=== PATIENT | male | born 1940 | race Caucasian/White ===

== ENCOUNTER 2016-12-08 | Outpatient (CLI) | payer MEDICARE, OTHER | END 2016-12-08 10:18 | disposition critical access hospital (66) | CPT/HCPCS: A0425; A0427 ==

== ENCOUNTER 2016-12-08 10:32 | Inpatient (IN) | payer MEDICARE, OTHER ==
[2016-12-08] MEDS ORDERED: SODIUM CHLORIDE 0.9% 1,000 ML IV ONE (11:46)
[2016-12-08] MEDS ORDERED: POTASSIUM CHLORIDE 20 MEQ TABLET PO STA (12:51)
[2016-12-08] MEDS ORDERED: POTASSIUM CHLORIDE 20 MEQ TABLET PO ONE (12:53)
[2016-12-08] MEDS ORDERED: ONDANSETRON 4 MG/2 ML VIAL IVP STA (15:17)
[2016-12-08] MEDS ORDERED: ONDANSETRON 4 MG/2 ML VIAL ONE (15:19)
[2016-12-08] MEDS ORDERED: FAMOTIDINE 20 MG/50 ML 50 ML IV ONE ×2 (15:43→16:15)
[2016-12-08] MEDS ORDERED: ACETAMINOPHEN 325 MG TABLET PO PRN (16:00)
[2016-12-08] MEDS: DEXTROSE 5%-0.45% NACL 1,000 ML IV SCH (19:00)
[2016-12-08] MEDS: POTASSIUM CHLOR 10 MEQ/100 ML 100 ML IV SCH ×2 (19:11→20:11)
[2016-12-08] MEDS: PANTOPRAZOLE 40 MG TABLET PO SCH (19:11)
[2016-12-08] MEDS: HYDROmorphone 1 MG/ML SYRINGE IVP PRN (21:08)
[2016-12-08] MEDS: CALCIUM CARBONATE CHEW 500 MG TABLET PO SCH (21:08)
[2016-12-08] MEDS: SODIUM CHLORIDE FLUSH 0.9% 10 ML SYRINGE IVP SCH (21:09)
[2016-12-09] MEDS: SODIUM CHLORIDE FLUSH 0.9% 10 ML SYRINGE IVP SCH ×3 (01:05→22:27)
[2016-12-09] MEDS: PANTOPRAZOLE 40 MG TABLET PO SCH (06:44)
[2016-12-09] MEDS: DEXTROSE 5%-0.45% NACL 1,000 ML IV SCH ×2 (06:44→15:16)
[2016-12-09] MEDS: ENOXAPARIN 40 MG/0.4 ML SYRINGE SUBQ SCH (08:56)
[2016-12-09] MEDS: CALCIUM CARBONATE CHEW 500 MG TABLET PO SCH ×2 (08:56→22:43)
[2016-12-09] MEDS: POLYETHYLENE GLYCOL 3350 17 GM PACKET PO SCH (08:56)
[2016-12-09] MEDS ORDERED: MULTIVITAMIN 10 ML, THIAMINE INJ 100 MG, FOLIC ACID INJ 1 MG in D5.45NS W/20 MEQ KCL 1,... IV SCH (09:30)
[2016-12-09] MEDS ORDERED: MORPHINE 2 MG/ML SYRINGE IVP PRN (12:31)
[2016-12-09] MEDS: diphenhydrAMINE 25 MG CAPSULE PO PRN ×2 (15:08→16:47)
[2016-12-09] MEDS: POTASSIUM CHLOR 10 MEQ/100 ML 100 ML IV SCH ×4 (15:14→18:53)
[2016-12-09] MEDS: HYDROcod/ACETAM 5/325 MG TABLET PO PRN (16:48)
[2016-12-09] MEDS: ONDANSETRON 4 MG/2 ML VIAL IVP PRN (17:49)
[2016-12-09] MEDS: CIPROFLOXACIN 400 MG/200 ML 200 ML IV SCH (18:52)
[2016-12-09] MEDS ORDERED: DEXTROSE 5%-0.2% NACL 1,000 ML IV SCH (19:00)
[2016-12-09] MEDS: metroNIDAZOLE 500 MG/100 ML 100 ML IV SCH (20:25)
[2016-12-09] MEDS ORDERED: FUROSEMIDE 20 MG/2 ML VIAL IVP STA (22:35)
[2016-12-10] MEDS: metroNIDAZOLE 500 MG/100 ML 100 ML IV SCH ×5 (00:39→23:56)
[2016-12-10] MEDS: SODIUM CHLORIDE FLUSH 0.9% 10 ML SYRINGE IVP SCH ×2 (01:02→17:28)
[2016-12-10] MEDS: CIPROFLOXACIN 400 MG/200 ML 200 ML IV SCH ×2 (04:39→18:38)
[2016-12-10] MEDS ORDERED: FUROSEMIDE 20 MG/2 ML VIAL IVP SCH (06:00)
[2016-12-10] MEDS: PANTOPRAZOLE 40 MG TABLET PO SCH (06:42)
[2016-12-10] MEDS: POTASSIUM CHLOR 10 MEQ/100 ML 100 ML IV SCH ×4 (07:48→12:44)
[2016-12-10] MEDS ORDERED: CALCIUM GLUCONATE 1,000 MG in SODIUM CHLORIDE 0.9% 50 ML IV ONE (08:00)
[2016-12-10] MEDS ORDERED: CALCIUM GLUCONATE IV ONE (08:00)
[2016-12-10] MEDS ORDERED: POTASSIUM CHLORIDE 20 MEQ TABLET PO SCH (08:00)
[2016-12-10] MEDS ORDERED: PANTOPRAZOLE 40 MG VIAL IV ONE (08:00)
[2016-12-10] MEDS ORDERED: SODIUM CHLORIDE 0.9% IV ONE (08:00)
[2016-12-10] MEDS: ONDANSETRON 4 MG/2 ML VIAL IVP PRN (08:42)
[2016-12-10] MEDS: SODIUM CHLORIDE FLUSH 0.9% 10 ML SYRINGE IVP PRN (08:44)
[2016-12-10] MEDS ORDERED: FUROSEMIDE 20 MG/2 ML VIAL IVP PRN (09:56)
[2016-12-10] MEDS: ENOXAPARIN 40 MG/0.4 ML SYRINGE SUBQ SCH (10:36)
[2016-12-10] MEDS: POLYETHYLENE GLYCOL 3350 17 GM PACKET PO SCH (11:06)
[2016-12-10] MEDS: MULTIVITAMIN 10 ML, FOLIC ACID INJ 1 MG, THIAMINE INJ 100 MG, MAGNESIUM SULFATE 2 GM in... IV SCH ×5 (11:08)
[2016-12-10] MEDS ORDERED: hydrOXYzine 50 MG/ML VIAL IM PRN (19:48)
[2016-12-10] MEDS: HYDROcod/ACETAM 5/325 MG TABLET PO PRN (21:36)
[2016-12-10] MEDS: CHOLESTYRAMINE 4 GM PACKET PO SCH (21:36)
[2016-12-11] MEDS: SODIUM CHLORIDE FLUSH 0.9% 10 ML SYRINGE IVP SCH ×3 (00:01→09:21)
[2016-12-11] MEDS ORDERED: metroNIDAZOLE 250 MG TABLET PO STA (04:44)
[2016-12-11] MEDS: metroNIDAZOLE 500 MG/100 ML 100 ML IV SCH ×2 (04:50→11:50)
[2016-12-11] MEDS: CIPROFLOXACIN 400 MG/200 ML 200 ML IV SCH (04:50)
[2016-12-11] MEDS ORDERED: PRENATAL VITAMIN TABLET PO SCH (08:00)
[2016-12-11] MEDS ORDERED: THIAMINE 100 MG TABLET PO SCH (09:00)
[2016-12-11] MEDS: POLYETHYLENE GLYCOL 3350 17 GM PACKET PO SCH (09:08)
[2016-12-11] MEDS: CHOLESTYRAMINE 4 GM PACKET PO SCH (09:08)
[2016-12-11] MEDS: SODIUM CHLORIDE FLUSH 0.9% 10 ML SYRINGE IVP PRN (09:10)
[2016-12-11] MEDS: HYDROmorphone 1 MG/ML SYRINGE IVP PRN (09:12)
[2016-12-11] MEDS: HYDROcod/ACETAM 5/325 MG TABLET PO PRN ×2 (09:12→14:12)
[2016-12-11] MEDS: MULTIVITAMIN 10 ML, FOLIC ACID INJ 1 MG, THIAMINE INJ 100 MG, MAGNESIUM SULFATE 2 GM in... IV SCH ×5 (09:19)
[2016-12-11] MEDS: ENOXAPARIN 40 MG/0.4 ML SYRINGE SUBQ SCH (09:23)
[2016-12-11] MEDS ORDERED: LACTULOSE 10 GM /15 ML UDC PO ONE (13:00)
[2016-12-11] MEDS ORDERED: MINERAL OIL/PETROLAT OPHTH OINT EACHEYE PRN (13:19)
[2016-12-11] MEDS ORDERED: ONDANSETRON ODT 4 MG TABLET TL PRN (13:19)
[2016-12-11] MEDS ORDERED: POLYETHYLENE GLYCOL 3350 17 GM PACKET PO PRN (13:19)
[2016-12-11] MEDS ORDERED: GI COCKTAIL 120 ML BOTTLE PO PRN (13:19)
[2016-12-11] MEDS ORDERED: BISACODYL 5 MG TABLET PO PRN (13:19)
[2016-12-11] MEDS ORDERED: LORazepam 2 MG/ML SYRINGE SUBQ PRN (13:19)
[2016-12-11] MEDS ORDERED: LACTULOSE 10 GM /15 ML UDC PO PRN (13:19)
[2016-12-11] MEDS ORDERED: LOPERAMIDE 2 MG CAPSULE PO PRN (13:19)
[2016-12-11] MEDS ORDERED: ACETAMINOPHEN 160 MG/5 ML SUSP UDC PO PRN (13:19)
[2016-12-11] MEDS: MORPHINE SOL 10 MG/0.5 ML SYRINGE SL PRN ×2 (14:13→21:14)
[2016-12-11] MEDS: SCOPOLAMINE PATCH TOP SCH (14:17)
[2016-12-11] MEDS: diphenhydrAMINE 25 MG CAPSULE PO PRN (15:58)
[2016-12-11] MEDS: ATROPINE 1% OPHTH DROPS 2 ML SL PRN (19:52)
[2016-12-11] MEDS ORDERED: MIN OIL/DIMETHICON/COCONUT OIL 92 GM TUBE TOP ONE (21:58)
[2016-12-12] MEDS: ATROPINE 1% OPHTH DROPS 2 ML SL PRN ×5 (03:19→23:51)
[2016-12-12] MEDS: MORPHINE SOL 10 MG/0.5 ML SYRINGE SL PRN ×3 (06:23→14:01)
[2016-12-13] MEDS: ATROPINE 1% OPHTH DROPS 2 ML SL PRN ×5 (02:14→10:37)
[2016-12-13] MEDS: MORPHINE SOL 10 MG/0.5 ML SYRINGE SL PRN ×3 (08:44→16:20)
[2016-12-14] MEDS: MORPHINE SOL 10 MG/0.5 ML SYRINGE SL PRN ×2 (08:30→10:18)
[2016-12-14] MEDS: ATROPINE 1% OPHTH DROPS 2 ML SL PRN (08:37)
[2016-12-14] MEDS: MORPHINE SOL 10 MG/0.5 ML SYRINGE SL SCH ×5 (13:16→22:46)
[2016-12-14] MEDS: SCOPOLAMINE PATCH TOP SCH (13:37)
[2016-12-14] MEDS: ATROPINE 1% SL PRN ×2 (16:49→22:48)
[2016-12-15] MEDS: MORPHINE SOL 10 MG/0.5 ML SYRINGE SL SCH ×12 (00:50→23:45)
[2016-12-15] MEDS: ATROPINE 1% SL PRN ×10 (00:51→21:52)
[2016-12-16] MEDS: ATROPINE 1% SL PRN (00:45)
[2016-12-16] MEDS: MORPHINE SOL 10 MG/0.5 ML SYRINGE SL SCH ×12 (00:49→22:36)
[2016-12-16] MEDS: GLYCOPYRROLATE 1 MG/5 ML VIAL SUBQ PRN (10:47)
[2016-12-16] MEDS: SCOPOLAMINE PATCH TOP SCH (13:54)
[2016-12-17] MEDS: MORPHINE SOL 10 MG/0.5 ML SYRINGE SL SCH ×5 (00:59→08:12)
[2016-12-17] MEDS: GLYCOPYRROLATE 1 MG/5 ML VIAL SUBQ PRN (08:13)
== END 2016-12-17 08:47 | disposition expired | DRG 432 ==
PROC: 30233L1 Transfusion of Nonautologous Fresh Plasma into Peripheral Vein, Percutaneous Approach (ICD-10-PCS; principal; 2016-12-10)
DX: K70.40 Alcoholic hepatic failure without coma (principal); R10.84 Generalized abdominal pain; K92.2 Gastrointestinal hemorrhage, unspecified; E78.00 Pure hypercholesterolemia, unspecified; E43 Unspecified severe protein-calorie malnutrition; M10.9 Gout, unspecified; F10.188 Alcohol abuse with other alcohol-induced disorder; K92.0 Hematemesis; K81.0 Acute cholecystitis; N39.0 Urinary tract infection, site not specified; K70.31 Alcoholic cirrhosis of liver with ascites; Z68.29 Body mass index [BMI] 29.0-29.9, adult; I10 Essential (primary) hypertension; E78.5 Hyperlipidemia, unspecified; F41.0 Panic disorder [episodic paroxysmal anxiety]; E87.6 Hypokalemia; E83.51 Hypocalcemia; Z79.899 Other long term (current) drug therapy; Z66 Do not resuscitate